=== PATIENT | female | born 1990 | race American Indian/Alaskan Native ===

== ENCOUNTER 2021-05-30 08:45 | Emergency (ER) | payer SELFPAY ==
[2021-05-30 08:55] VITALS: BP 128/80
[2021-05-30] MEDS ORDERED: IBUPROFEN 600 MG TAB PO ONE (09:11)
--- NOTE | 2021-05-30 09:11 | Emergency Department Report ---
ED ENT HPI - General Chief complaint: Earache Stated complaint: SOMETHING IN EAR Time Seen by Provider: 05/30/21 08:55 Source: patient Mode of arrival: Ambulatory Limitations: No Limitations - History of Present Illness Initial comments: 31-year-old female presents to the ER today with complaints of left ear pain. She states that she woke up with around 530 this morning. She reports pain, pressure and decreased hearing out of that left ear. She denies any drainage from the ear. She states that she is concerned that she may have a bug in her ear though she did not feel anything in her ear nor see anything into her ear. She states that she does suffer from allergies and sinuses but has not had any recent colds. She denies any fever chills or any additional symptoms at this time. MD complaint: ear pain -: Sudden (5:30 am ) - Related Data Previous Rx's Medication Instructions Recorded Last Taken Type Ferrous Sulfate [Feosol 325 MG tab] 325 mg PO BID #60 tablet 01/10/14 Unknown Rx [id number]/Iron Fum/Folic/Docusate 1 each PO QDAY #30 tablet 01/10/14 Unknown Rx [ 19 Tablet] Amoxicillin [Trimox CAP] 500 mg PO Q8H #30 capsule 05/30/21 Unknown Rx Fluticasone [Flonase] 2 spray NS QDAY #1 bottle 05/30/21 Unknown Rx Ibuprofen [Motrin] 600 mg PO Q8H PRN #30 tablet 05/30/21 Unknown Rx Pseudoephedrine ER [Sudafed 12 Hr] 120 mg PO BID #20 tablet.er 05/30/21 Unknown Rx Allergies Allergy/AdvReac Type Severity Reaction Status Date / Time sulfur [From Sulfur-8] AdvReac Hives Unverified 04/03/14 17:55 ED Dental HPI - General Chief complaint: Earache Stated complaint: SOMETHING IN EAR Time Seen by Provider: 05/30/21 08:55 Source: patient Mode of arrival: Ambulatory Limitations: No Limitations - Related Data Previous Rx's Medication Instructions Recorded Last Taken Type Ferrous Sulfate [Feosol 325 MG tab] 325 mg PO BID #60 tablet 01/10/14 Unknown Rx [id number]/Iron Fum/Folic/Docusate 1 each PO QDAY #30 tablet 01/10/14 Unknown Rx [ 19 Tablet] Amoxicillin [Trimox CAP] 500 mg PO Q8H #30 capsule 05/30/21 Unknown Rx Fluticasone [Flonase] 2 spray NS QDAY #1 bottle 05/30/21 Unknown Rx Ibuprofen [Motrin] 600 mg PO Q8H PRN #30 tablet 05/30/21 Unknown Rx Pseudoephedrine ER [Sudafed 12 Hr] 120 mg PO BID #20 tablet.er 05/30/21 Unknown Rx Allergies Allergy/AdvReac Type Severity Reaction Status Date / Time sulfur [From Sulfur-8] AdvReac Hives Unverified 04/03/14 17:55 ED Review of Systems ROS: Stated complaint: SOMETHING IN EAR Other details as noted in HPI Comment: All other systems reviewed and negative ENT: ear pain, congestion Respiratory: denies: cough, shortness of breath, SOB with exertion, SOB at rest, wheezing Cardiovascular: denies: chest pain, palpitations, syncope, paroxysmal nocturnal dyspnea Gastrointestinal: denies: abdominal pain, nausea, diarrhea, constipation, hematemesis, melena, hematochezia Genitourinary: denies: urgency, dysuria, frequency, hematuria, discharge, abno rmal menses, dyspareunia Musculoskeletal: denies: back pain, joint swelling, arthralgia Skin: denies: rash, lesions, change in color, change in hair/nails, pruritus Neurological: denies: headache, weakness, numbness, paresthesias, confusion, abnormal gait, vertigo Psychiatric: denies: anxiety, depression, auditory hallucinations, visual hallucinations, homicidal thoughts, suicidal thoughts Hematological/Lymphatic: denies: easy bleeding, easy bruising, swollen glands ED Past Medical Hx - Past Medical History Hx Hypertension: No Hx Congestive Heart Failure: No Hx Diabetes: No Hx Deep Vein Thrombosis: No Hx Renal Disease: No Hx Sickle Cell Disease: No Hx Seizures: No Hx Asthma: No Hx COPD: No Hx HIV: No - Social History Smoking Status: Never Smoker Substance Use Type: None - Medications Home Medications: Home Medications Medication Instructions Recorded Confirmed Last Taken Type Ferrous Sulfate [Feosol 325 MG tab] 325 mg PO BID #60 tablet 01/10/14 Unknown Rx [id number]/Iron Fum/Folic/Docusate 1 each PO QDAY #30 tablet 01/10/14 Unknown Rx [ 19 Tablet] Amoxicillin [Trimox CAP] 500 mg PO Q8H #30 capsule 05/30/21 Unknown Rx Fluticasone [Flonase] 2 spray NS QDAY #1 bottle 05/30/21 Unknown Rx Ibuprofen [Motrin] 600 mg PO Q8H PRN #30 tablet 05/30/21 Unknown Rx Pseudoephedrine ER [Sudafed 12 Hr] 120 mg PO BID #20 tablet.er 05/30/21 Unknown Rx ED Physical Exam - General Limitations: No Limitations General appearance: alert, in no apparent distress - Head Head exam: Present: atraumatic, normocephalic, normal inspection - Eye Eye exam: Present: normal appearance, PERRL, EOMI Pupils: Present: normal accommodation - Expanded ENT Exam Expanded TM/Canal exam: Erythema: Left TM, Bulging: Left TM, Effusion: Right TM, Left TM Mouth exam: Present: normal external inspection Teeth exam: Present: normal inspection Throat exam: Positive: normal inspection - Neck Neck exam: Present: normal inspection - Respiratory Respiratory exam: Present: normal lung sounds bilaterally. Absent: respiratory distress, wheezes, rales, rhonchi - Cardiovascular Cardiovascular Exam: Present: regular rate, normal rhythm, normal heart sounds - GI/Abdominal GI/Abdominal exam: Present: soft. Absent: distended, tenderness, guarding - Neurological Exam Neurological exam: Present: alert, oriented X3, CN II-XII intact, normal gait - Psychiatric Psychiatric exam: Present: normal affect, normal mood - Skin Skin exam: Present: intact ED Course Vital Signs 05/30/21 05/30/21 08:49 08:50 Temperature 97.7 F Pulse Rate 72 Respiratory 18 Rate Blood Pressure 128/80 O2 Sat by Pulse 94 Oximetry Critical care attestation.: If time is entered above; I have spent that time in minutes in the direct care of this critically ill patient, excluding procedure time. ED Disposition Clinical Impression: Otitis media Disposition: 01 HOME / SELF CARE / HOMELESS Is pt being admited?: No Does the pt Need Aspirin: No Condition: Stable Instructions: Otitis Media, Adult, [id number] Additional Instructions: I recommend that you take the amoxicillin as prescribed. Take the Sudafed and Flonase also as prescribed. Take the ibuprofen as prescribed for pain. Follow- up closely with your PCP. Return to the ER if your symptoms changes or worsens in any way. Prescriptions: Fluticasone [Flonase] 2 spray NS QDAY #1 bottle Ibuprofen [Motrin] 600 mg PO Q8H PRN #30 tablet PRN Reason: Pain Pseudoephedrine ER [Sudafed 12 Hr] 120 mg PO BID #20 tablet.er Amoxicillin [Trimox CAP] 500 mg PO Q8H #30 capsule Referrals: CHRISTINA CORCORAN MD [Staff Physician] - 3-5 Days Time of Disposition: 09:10
== END 2021-05-30 09:24 | disposition home or self-care (01) ==
LOC: ED 08:45
DX: H66.92 Otitis media, unspecified, left ear (principal); Z79.899 Other long term (current) drug therapy
CPT/HCPCS: 99282

== ENCOUNTER 2021-07-26 19:37 | Emergency (ER) | payer MEDICAID ==
[2021-07-26 21:41] VITALS: BP 121/75
--- NOTE | 2021-07-26 22:42 | Emergency Department Report ---
ED General Adult HPI - General Chief complaint: Earache Stated complaint: EAR PAIN Source: patient, family Mode of arrival: Ambulatory Limitations: No Limitations - History of Present Illness Initial comments: 31-year-old F Haitian female with my department complaining of 4 to 5-week history of not improving right ear pain, pressure, decreased hearing that has progressed to ear swelling and drainage despite her utilization of amoxicillin. She is try to utilize hairpins, and prescription devices to try to soothe her ear discomfort which is only seemed to make things worse. States she gets occasional dizziness of unknown etiology reports no sore throat, no fever, chills, sweats. No nausea, no vomiting, no chest pain, no palpitations. -: week(s) Radiation: non-radiation Severity scale (0 -10): 5 Quality: dull Consistency: constant Improves with: none Worsens with: none Associated Symptoms: denies other symptoms Treatments Prior to Arrival: none - Related Data Previous Rx's Medication Instructions Recorded Last Taken Type Ferrous Sulfate [Feosol 325 MG tab] 325 mg PO BID #60 tablet 01/10/14 Unknown Rx [id number]/Iron Fum/Folic/Docusate 1 each PO QDAY #30 tablet 01/10/14 Unknown Rx [ 19 Tablet] Amoxicillin [Trimox CAP] 500 mg PO Q8H #30 capsule 05/30/21 Unknown Rx Fluticasone [Flonase] 2 spray NS QDAY #1 bottle 05/30/21 Unknown Rx Ibuprofen [Motrin] 600 mg PO Q8H PRN #30 tablet 05/30/21 Unknown Rx Pseudoephedrine ER [Sudafed 12 Hr] 120 mg PO BID #20 tablet.er 05/30/21 Unknown Rx Amoxicillin/Potassium Clav 1 each PO BID #20 07/26/21 Unknown Rx [Augmentin 875-125 Tablet] Neomy/Polymyx B/Hc (Otic) Soln 4 drops OT TID #1 bottle 07/26/21 Unknown Rx [Cortisporin (Otic) Soln] Allergies Allergy/AdvReac Type Severity Reaction Status Date / Time cefixime [From Suprax] Allergy Unknown Verified 07/26/21 20:14 ED Review of Systems ROS: Stated complaint: EAR PAIN Other details as noted in HPI Comment: All other systems reviewed and negative ED Past Medical Hx - Past Medical History Previous Medical History?: No Hx Hypertension: No Hx Congestive Heart Failure: No Hx Diabetes: No Hx Deep Vein Thrombosis: No Hx Renal Disease: No Hx Sickle Cell Disease: No Hx Seizures: No Hx Asthma: No Hx COPD: No Hx HIV: No - Surgical History Past Surgical History?: No - Social History Smoking Status: Never Smoker Substance Use Type: None - Medications Home Medications: Home Medications Medication Instructions Recorded Confirmed Last Taken Type Ferrous Sulfate [Feosol 325 MG tab] 325 mg PO BID #60 tablet 01/10/14 07/26/21 Unknown Rx [id number]/Iron Fum/Folic/Docusate 1 each PO QDAY #30 tablet 01/10/14 07/26/21 Unknown Rx [ 19 Tablet] Amoxicillin [Trimox CAP] 500 mg PO Q8H #30 capsule 05/30/21 07/26/21 Unknown Rx Fluticasone [Flonase] 2 spray NS QDAY #1 bottle 05/30/21 07/26/21 Unknown Rx Ibuprofen [Motrin] 600 mg PO Q8H PRN #30 tablet 05/30/21 07/26/21 Unknown Rx Pseudoephedrine ER [Sudafed 12 Hr] 120 mg PO BID #20 tablet.er 05/30/21 07/26/21 Unknown Rx Amoxicillin/Potassium Clav 1 each PO BID #20 07/26/21 Unknown Rx [Augmentin 875-125 Tablet] Neomy/Polymyx B/Hc (Otic) Soln 4 drops OT TID #1 bottle 07/26/21 Unknown Rx [Cortisporin (Otic) Soln] ED Physical Exam - General Limitations: No Limitations General appearance: alert, in no apparent distress - Head Head exam: Present: atraumatic, normocephalic - Eye Eye exam: Present: normal appearance, PERRL, EOMI Pupils: Present: normal accommodation - ENT ENT exam: Present: normal exam, normal orophraynx, mucous membranes moist, normal external ear exam, other (Right ear canal has erythema and swelling with some cerumen and scant pus present can vaguely see the tympanic membranes). Absent: TM's normal bilaterally - Neck Neck exam: Present: normal inspection, full ROM. Absent: lymphadenopathy - Respiratory Respiratory exam: Present: normal lung sounds bilaterally. Absent: respiratory distress, wheezes, rhonchi, stridor - Cardiovascular Cardiovascular Exam: Present: regular rate, normal rhythm. Absent: systolic murmur, diastolic murmur, rubs, gallop - GI/Abdominal GI/Abdominal exam: Present: soft, normal bowel sounds - Extremities Exam Extremities exam: Present: normal inspection, normal capillary refill - Back Exam Back exam: Present: normal inspection. Absent: CVA tenderness (R), CVA tenderness (L), paraspinal tenderness, vertebral tenderness - Neurological Exam Neurological exam: Present: alert, oriented X3, CN II-XII intact, normal gait - Psychiatric Psychiatric exam: Present: normal affect, normal mood - Skin Skin exam: Present: warm, dry, intact, normal color. Absent: rash ED Course Vital Signs 07/26/21 07/26/21 21:37 21:39 Temperature 98.8 F Pulse Rate 73 Respiratory 18 Rate Blood Pressure 121/75 [Right] O2 Sat by Pulse 99 99 Oximetry Critical care attestation.: If time is entered above; I have spent that time in minutes in the direct care of this critically ill patient, excluding procedure time. ED Disposition Clinical Impression: Otitis media Disposition: 01 HOME / SELF CARE / HOMELESS Is pt being admited?: No Does the pt Need Aspirin: No Condition: Stable Instructions: Ear Drops, Adult, Otitis Media, Adult Referrals: ASHLI DE LOS SANTOS MD [Primary Care Provider] - 3-5 Days [facility] [Provider Group] - 3-5 Days
== END 2021-07-26 22:55 | disposition home or self-care (01) ==
LOC: ED 19:37
DX: H66.91 Otitis media, unspecified, right ear (principal); Z88.1 Allergy status to other antibiotic agents
CPT/HCPCS: 99282

== ENCOUNTER 2021-08-09 14:50 | Emergency (ER) | payer MEDICAID ==
[2021-08-09 16:20] VITALS: BP 102/77
[2021-08-09] MEDS ORDERED: METOCLOPRAMIDE 10 MG/2 ML INJ IV ONE (16:34)
[2021-08-09] MEDS ORDERED: ONDANSETRON 4 MG ODT TAB PO ONE (16:43)
[2021-08-09 17:09] LABS: Bacteria,Urine 2+ /HPF (Negative); Bilirubin,Urine NEG (Negative); Blood,Urine NEG (Negative); Color,Urine Amber (Yellow); Mucus,Urine 3+ /HPF; Urobilinogen,Urine < 2.0 mg/dL (<2.0)
[2021-08-09 17:15] LABS: Hematocrit 40.5 % (30.3-42.9); Hemoglobin 13.1 gm/dl (10.1-14.3); Mean Corpuscular HGB Conc 32 % (30-34); Mean Corpuscular Volume 90 fl (79-97); Platelet Count 283 K/mm3 (140-440); Red Blood Count 4.49 M/mm3 (3.65-5.03); Red Cell Distribution Width 14.6 % (13.2-15.2)
[2021-08-09 17:37] LABS: Alanine Aminotransferase 17 units/L (7-56); Blood Urea Nitrogen 12 mg/dL (7-17); Calcium 9.2 mg/dL (8.4-10.2); Hemolysis Index 27
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
[2021-08-09 17:47] LABS: BUN/Creatinine Ratio 17
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
== END 2021-08-09 20:18 | disposition home or self-care (01) ==
LOC: ED 14:50
DX: O26.891 Other specified pregnancy related conditions, first trimester (principal); O23.41 Unspecified infection of urinary tract in pregnancy, first trimester; S09.90XA Unspecified injury of head, initial encounter; N39.0 Urinary tract infection, site not specified; Y08.89XA Assault by other specified means, initial encounter; Y93.89 Activity, other specified; Y92.89 Other specified places as the place of occurrence of the external cause; Y99.8 Other external cause status
CPT/HCPCS: 36415; 70450; 76801; 80053; 81001; 84702; 85027; 99284; J2765; J3490; Q0162

== ENCOUNTER 2022-01-13 11:31 | Emergency (ER) | payer MEDICAID ==
[2022-01-13 12:20] VITALS: BP 126/80
--- NOTE | 2022-01-13 12:27 | Emergency Department Report ---
ED General Adult HPI - General Chief complaint: Nausea/Vomiting/Diarrhea Stated complaint: FATIGUE/HEART PALPS/SOB Time Seen by Provider: 01/13/22 12:18 Source: patient Mode of arrival: Ambulatory Limitations: No Limitations - History of Present Illness Initial comments: 31-year-old female Christina emerged department complaining of nausea and vomiting the last for 5 days in conjunction with some presyncope with no suspicion for . She thinks that her blood levels might be low or she may be dehydrated and 6 -: Gradual Location: head Radiation: non-radiation Consistency: constant Improves with: none Associated Symptoms: denies other symptoms Treatments Prior to Arrival: none - Related Data Previous Rx's Medication Instructions Recorded Last Taken Type Ferrous Sulfate [Feosol 325 MG tab] 325 mg PO BID #60 tablet 01/10/14 Unknown Rx [id number]/Iron Fum/Folic/Docusate 1 each PO QDAY #30 tablet 01/10/14 Unknown Rx [ 19 Tablet] Amoxicillin [Trimox CAP] 500 mg PO Q8H #30 capsule 05/30/21 Unknown Rx Fluticasone [Flonase] 2 spray NS QDAY #1 bottle 05/30/21 Unknown Rx Ibuprofen [Motrin] 600 mg PO Q8H PRN #30 tablet 05/30/21 Unknown Rx Pseudoephedrine ER [Sudafed 12 Hr] 120 mg PO BID #20 tablet.er 05/30/21 Unknown Rx Amoxicillin/Potassium Clav 1 each PO BID #20 07/26/21 Unknown Rx [Augmentin 875-125 Tablet] Neomy/Polymyx B/Hc (Otic) Soln 4 drops OT TID #1 bottle 07/26/21 Unknown Rx [Cortisporin (Otic) Soln] Nitrofurantoin Cidra/M-Cryst 100 mg PO Q12HR #14 capsule 08/09/21 Unknown Rx [Macrobid CAP] Ondansetron [Zofran Odt] 4 mg PO Q8HR PRN #12 tab.rapdis 08/09/21 Unknown Rx Doxylamine Succinate/Vit B6 1 each PO BID #30 01/13/22 Unknown Rx [Diclegis Dr 10-10 mg Tablet] Allergies Allergy/AdvReac Type Severity Reaction Status Date / Time cefixime [From Suprax] Allergy Unknown Verified 07/26/21 20:14 ED Review of Systems ROS: Stated complaint: FATIGUE/HEART PALPS/SOB Other details as noted in HPI Comment: All other systems reviewed and negative ED Past Medical Hx - Past Medical History Previous Medical History?: No Hx Hypertension: No Hx Congestive Heart Failure: No Hx Diabetes: No Hx Deep Vein Thrombosis: No Hx Renal Disease: No Hx Sickle Cell Disease: No Hx Seizures: No Hx Asthma: No Hx COPD: No Hx HIV: No - Surgical History Past Surgical History?: No - Social History Smoking Status: Never Smoker Substance Use Type: None - Medications Home Medications: Home Medications Medication Instructions Recorded Confirmed Last Taken Type Ferrous Sulfate [Feosol 325 MG tab] 325 mg PO BID #60 tablet 01/10/14 07/26/21 Unknown Rx [id number]/Iron Fum/Folic/Docusate 1 each PO QDAY #30 tablet 01/10/14 07/26/21 Unknown Rx [ 19 Tablet] Amoxicillin [Trimox CAP] 500 mg PO Q8H #30 capsule 05/30/21 07/26/21 Unknown Rx Fluticasone [Flonase] 2 spray NS QDAY #1 bottle 05/30/21 07/26/21 Unknown Rx Ibuprofen [Motrin] 600 mg PO Q8H PRN #30 tablet 05/30/21 07/26/21 Unknown Rx Pseudoephedrine ER [Sudafed 12 Hr] 120 mg PO BID #20 tablet.er 05/30/21 07/26/21 Unknown Rx Amoxicillin/Potassium Clav 1 each PO BID #20 07/26/21 Unknown Rx [Augmentin 875-125 Tablet] Neomy/Polymyx B/Hc (Otic) Soln 4 drops OT TID #1 bottle 07/26/21 Unknown Rx [Cortisporin (Otic) Soln] Nitrofurantoin Cidra/M-Cryst 100 mg PO Q12HR #14 capsule 08/09/21 Unknown Rx [Macrobid CAP] Ondansetron [Zofran Odt] 4 mg PO Q8HR PRN #12 tab.rapdis 08/09/21 Unknown Rx Doxylamine Succinate/Vit B6 1 each PO BID #30 01/13/22 Unknown Rx [Diclegis Dr 10-10 mg Tablet] ED Physical Exam - General Limitations: No Limitations General appearance: alert, in no apparent distress - Head Head exam: Present: atraumatic, normocephalic - Eye Eye exam: Present: normal appearance - ENT ENT exam: Present: mucous membranes moist - Neck Neck exam: Present: normal inspection - Respiratory Respiratory exam: Present: normal lung sounds bilaterally. Absent: respiratory distress - Cardiovascular Cardiovascular Exam: Present: regular rate, normal rhythm. Absent: systolic murmur, diastolic murmur, rubs, gallop - GI/Abdominal GI/Abdominal exam: Present: soft, normal bowel sounds - Extremities Exam Extremities exam: Present: normal inspection - Back Exam Back exam: Present: normal inspection - Neurological Exam Neurological exam: Present: alert, oriented X3 - Psychiatric Psychiatric exam: Present: normal affect, normal mood - Skin Skin exam: Present: warm, dry, intact, normal color. Absent: rash ED Course Vital Signs 01/13/22 12:13 Temperature 98.6 F Pulse Rate 100 H Respiratory 18 Rate Blood Pressure 126/80 [Left] O2 Sat by Pulse 100 Oximetry ED Medical Decision Making - Lab Data Result diagrams: 01/13/22 12:34 01/13/22 12:34 - Medical Decision Making 31-year-old female presents emerged department complaining of nausea vomiting over the last 4 to 5 days reports that she may be a little bit late on her menses but does not feel that the issue. When presented with the findings of her serum hCG test and confirmation with the quant she grew confuse and slightly anxious was very surprised. The patient did gather all of her belongings in belongings started to pace the room and ask if she can go out to the imaging to retrieve some water after doing so I had no further contact with the patient Critical care attestation.: If time is entered above; I have spent that time in minutes in the direct care of this critically ill patient, excluding procedure time. ED Disposition Clinical Impression: Nausea, as incidental finding Disposition: HOME / SELF CARE / HOMELESS Is pt being admited?: No Does the pt Need Aspirin: No Condition: Stable Instructions: Warning Signs During , Care, Nausea and Vomiting, Adult Prescriptions: Doxylamine Succinate/Vit B6 [Sheilagis Dr 10-10 mg Tablet] 1 each PO BID #30 Referrals: PRIMARY CARE, [Primary Care Provider] - 3-5 Days
[2022-01-13 12:46] LABS: Basophils % (Auto) 0.6 % (0.0-1.8); Eosinophils # (Auto) 0.2 K/mm3 (0.0-0.4); Eosinophils % (Auto) 3.1 % (0.0-4.3); Hematocrit 43.9 % (30.3-42.9); Hemoglobin 14.1 gm/dl (10.1-14.3); Lymphocytes # (Auto) 2.3 K/mm3 (1.2-5.4); Lymphocytes % (Auto) 34.3 % (13.4-35.0); Mean Corpuscular HGB Conc 32 % (30-34); Mean Corpuscular Volume 91 fl (79-97); Monocytes # (Auto) 0.6 K/mm3 (0.0-0.8); Monocytes % (Auto) 9.2 % (0.0-7.3); Platelet Count 265 K/mm3 (140-440); Red Blood Count 4.81 M/mm3 (3.65-5.03); Red Cell Distribution Width 14.6 % (13.2-15.2)
[2022-01-13 13:10] LABS: Blood Urea Nitrogen 7 mg/dL (7-17); Calcium 9.7 mg/dL (8.4-10.2); Hemolysis Index 4
[2022-01-13 13:16] LABS: BUN/Creatinine Ratio 12
== END 2022-01-16 09:36 | disposition home or self-care (01) ==
LOC: ED 11:31
DX: R11.2 Nausea with vomiting, unspecified (principal); Z91.09 Other allergy status, other than to drugs and biological substances; Z79.899 Other long term (current) drug therapy
CPT/HCPCS: 36415; 80048; 84702; 84703; 85025; 99283